=== PATIENT | female | born 2000 | race Hispanic/Latino ===

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

== ENCOUNTER 2018-03-21 18:22 | Emergency (ER) | payer OTHER ==
--- NOTE | 2018-03-21 20:46 | ULT ---
LEFT LOWER EXTREMITY VENOUS DOPPLER: 03/21/2018 PROVIDED CLINICAL HISTORY: Left lower leg pain. FINDINGS: Gamino-scale and color Doppler sonography with spectral analysis is performed of the left common femora l, femoral, popliteal, posterior tibial, greater saphenous, and profunda femoral veins and demonstrat e a normal sonographic appearance to each. IMPRESSION: No sonographic evidence for left lower extremity deep venous thrombosis. POS: [facility]
== END 2018-03-21 21:29 | disposition home or self-care (01) ==
LOC: ERS 18:22
DX: O99.89 Other specified diseases and conditions complicating pregnancy, childbirth and the puerperium (principal); R60.0 Localized edema; Z3A.40 40 weeks gestation of pregnancy

== ENCOUNTER 2018-04-12 19:08 | Day surgery (SDC) | payer OTHER ==
--- NOTE | 2018-04-12 19:36 | PDOC.LDHP ---
Labor and Delivery H&P Chief complaint: contractions HPI: 17 y/o G1 at 39w6d, patient of Dr. Bray, presents with contractions all day. She reports she has been sleeping all day but they have gotten stronger over the last couple of hours. Rates pain as a 9/10. Denies VB, LOF, PIH sx, or decreased FM. Has had increase in mucus discharge. ROS neg for HEENT, cv, pulm, gi, gu, neuro, psych, skin, musculoskeletal, or constitutional symptoms other than mentioned above. OB History Details: First , uncomplicated Past Medical History: Denies Current medications: pre- vitamins, iron Previous surgical history: none Allergies/Adverse Reactions: Allergies Allergy/AdvReac Type Severity Reaction Status Date / Time No Known Allergies Allergy Verified 10/26/13 09:59 Social history: none - Physical Exam Vital signs reviewed and normal: yes General: NAD, resting Lungs: nonlabored breathing Abdomen: gravid Extremeties: no edema FHT: category 1 (145, mod variability, + accels, no decels) [place] contractions every: 3-5 mins - Vaginal Exam cm dilated: 2 (Unchanged after 2 hours) Effacement: 75% Station: -3 - Assessment 17 y/o G1 at 39w6d with no e/o active labor. status reassuring with reactive NST. - Plan -: D/c home with precautions. Advised to keep all appointments.
== END 2018-04-12 22:00 | disposition home or self-care (01) ==
LOC: L&D/OP 19:08
PROVIDERS: ATTEND Obstetrics & Gynecology
DX: O47.1 False labor at or after 37 completed weeks of gestation (principal); Z3A.39 39 weeks gestation of pregnancy
CPT/HCPCS: 99283

== ENCOUNTER 2018-04-14 23:14 | Day surgery (SDC) | payer OTHER ==
[2018-04-14 23:45] VITALS: BP 123/80; TEMP 99.1; BMI 32.2
[2018-04-15 01:59] LABS: Amnisure Test No Membranes Rupture (No Rupture)
[2018-04-15 02:00] LABS: Amnisure Internal Control QC ACCEPTABLE (ACCEPTABLE)
--- NOTE | 2018-04-15 13:45 | SS ---
DATE OF EVALUATION: 04/15/2018. REGULAR PHYSICIAN: Joann Bray M.D. EVALUATING PHYSICIAN: Mikael Ramon M.D. CHIEF COMPLAINT: Contractions over the last 2-3 days. HISTORY OF PRESENT ILLNESS: Ms. Abdi is a 17-year-old , estimated date of confinement of 04/13/2018, who presents complaining of uterine contractions over the last several days that got s dominguezer lloyd. She was last seen by Dr. Bray in the clinic and was noted to be 3 cm. Upon initi al evaluation, she denied vaginal bleeding or ruptured membranes. Her care has been with Dr Heber Bray and has been uncomplicated. Her group B strep status is negative. PAST MEDICAL HISTORY: Unremarkable. CURRENT MEDICATIONS: vitamins. PAST SURGICAL HISTORY: None. ALLERGIES: No known allergies. SOCIAL HISTORY: Denies tobacco or alcohol use. FAMILY HISTORY: Noncontributory. PHYSICAL EXAMINATION: VITAL SIGNS: Stable and reassuring. GENERAL: She is afebrile. ABDOMEN: Soft, nontender and gravid. PELVIC: Vaginal exam is by examining labor nurse. heart tones are stable. Uterine cont ractions are seen every 3-5 minutes. The patient asked to walk and be reassessed. She was reexamined and made no cervical change. She di d think that she might have been leaking while she was walking, although when I reexamined her and sh e had no cervical change. An AmniSure was performed and this returned negative. ASSESSMENT: 1. A 40 and 2/7 week intrauterine . 2. Prodromal labor. 3. No evidence of rupture of membranes. PLAN: The patient will be allowed to go home and rest. She was given complete precautions and told to return when her contractions are stronger and more frequent. She is with her family and they all voiced understanding of the discharge instructions.
== END 2018-04-15 02:12 | disposition home or self-care (01) ==
LOC: L&D/OP 23:14
PROVIDERS: ATTEND Obstetrics & Gynecology
DX: O47.1 False labor at or after 37 completed weeks of gestation (principal); Z3A.40 40 weeks gestation of pregnancy; Z79.899 Other long term (current) drug therapy
CPT/HCPCS: 84112

== ENCOUNTER 2018-04-15 15:42 | Inpatient (IN) | payer OTHER ==
[2018-04-15 16:30] VITALS: BMI 32.2
--- NOTE | 2018-04-15 18:32 | PDOC.LDHP ---
Labor and Delivery H&P Chief complaint: contractions HPI: return post term with ctx Current gestational age (weeks): 40 Due date: 04/13/18 Dating criteria: first trimester ultrasound Grav: 1 Para: 0 Current complications: none Abnormal US findings: No Current medications: pre- vitamins Previous surgical history: none Allergies/Adverse Reactions: Allergies Allergy/AdvReac Type Severity Reaction Status Date / Time No Known Allergies Allergy Verified 04/15/18 16:23 Social history: none - Physical Exam Vital signs reviewed and normal: yes General: NAD, resting Heart: RRR Lungs: nonlabored breathing Abdomen: gravid Extremeties: no edema FHT: category 1 [place] contractions every: 3 - Vaginal Exam cm dilated: 4 Effacement: 100% Station: 0 - OB Labs Blood type: O RH: positive Antibody Screen: negative HIV: negative RPR: negative HEPSAg: negative 1 hour GCT: negative GBS: negative Urine drug screen: not done Rubella: immune - Assessment L&D Assessment: term patient in labor - Plan Plan: admit to L&D, anesthesia consult for pain management
[2018-04-15] MEDS ORDERED: Carboprost 250 MCG/ML AMP IM PRN (18:45)
[2018-04-15] MEDS ORDERED: Ibuprofen 800 MG TAB PO PRN (18:45)
[2018-04-15] MEDS ORDERED: NS w/ Oxytocin 10 units 500 ML IV SCH (18:45)
[2018-04-15] MEDS ORDERED: Lactated Ringer's 1,000 ML IV SCH (18:45)
[2018-04-15] MEDS ORDERED: Ondansetron HCl/PF 4 MG/2 ML Vial IVP PRN ×2 (18:45→20:54)
[2018-04-15] MEDS ORDERED: Diphenoxylate HCl/Atropine Tablet PO PRN (18:45)
[2018-04-15] MEDS ORDERED: Promethazine HCl 25 MG/ML VIAL IM PRN ×2 (18:45→20:54)
[2018-04-15] MEDS ORDERED: Lidocaine 1% (PF) 30 ML VIAL SC PRN (18:45)
[2018-04-15] MEDS ORDERED: NS / Oxytocin 40 units/1000ml 1,000 ML IV PRN (18:45)
[2018-04-15] MEDS ORDERED: HYDROcodone/Acetaminophen 5/325 mg Tablet PO PRN ×2 (18:45)
[2018-04-15] MEDS ORDERED: Butorphanol Tartrate 1 MG/ML VIAL SLOW IVP PRN (18:45)
[2018-04-15 19:05] LABS: Hemoglobin 11.7 g/dL (12.0-16.0); Mean Corpuscular HGB CONC 33.5 g/dL (32.0-36.0); Mean Corpuscular Hemoglobin 27.8 pg (25.0-35.0); Mean Corpuscular Volume 83.1 fl (77.0-87.0); Mean Platelet Volume 9.8 fL (7.4-10.4); Platelet Count 229 thou/uL (130-400); RBC Distribution Width 14.7 % (11.5-14.5); Red Blood Cell (RBC) Count 4.22 mill/uL (4.00-5.20); White Blood Cell (WBC) Count 12.5 thou/uL (4.8-10.8)
[2018-04-15 19:48] LABS: HBSAg Index 0.28 S/CO (0-0.99); Hep B Surf Ag Non-Reactive S/CO (NonReactive)
[2018-04-15 19:49] LABS: Syphilis Antibody Nonreactive (Nonreactive); Syphilis Antibody Index 0.02 S/CO (<1.00 Non-Reactive)
[2018-04-15] MEDS ORDERED: DISCONTINUE ALL PREVIOUS NARCOTICS FS SCH (20:00)
[2018-04-15] MEDS ORDERED: Bupivacaine 0.75% 13.4 ML, fentaNYL Citrate/PF 400 MCG in Sodium Chloride 0.9% 78.6 ML EPIDURAL SCH (20:00)
[2018-04-15] MEDS: Lactated Ringer's 1,000 ML IV SCH (20:20)
[2018-04-15] MEDS ORDERED: Lactated Ringer's 500 ML IV PRN (20:54)
[2018-04-15] MEDS ORDERED: ePHEDrine/0.9% NaCl/PF SYRINGE 50 mg/10 ml SLOW IVP PRN (20:54)
[2018-04-15] MEDS ORDERED: Naloxone HCl 0.4 mg/ml Vial IVP PRN ×2 (20:54)
[2018-04-15] MEDS ORDERED: Acetaminophen 325 MG TAB PO PRN (20:54)
[2018-04-15] MEDS ORDERED: Eucerin (Mineral Oil/Petrolatum,White) 30 gm Jar TOP PRN (20:54)
[2018-04-15] MEDS ORDERED: diphenhydrAMINE 50 MG/ML VIAL IVP PRN (20:54)
[2018-04-15] MEDS ORDERED: Fentanyl 4mcg/Marcaine 0.1% Cassette 100 ML EPIDURAL SCH (21:00)
[2018-04-15] MEDS ORDERED: Communication Order-Pharmacy FS SCH (21:00)
[2018-04-16] MEDS: Lactated Ringer's 1,000 ML IV SCH (04:11)
[2018-04-16] MEDS ORDERED: HYDROcodone/Acetaminophen 5/325 mg Tablet PO PRN (04:13)
[2018-04-16] MEDS ORDERED: Lanolin Ointment 7 GM TUBE TOP PRN (04:13)
[2018-04-16] MEDS ORDERED: Preparation H Ointment 28 GM TUBE PR PRN (04:13)
[2018-04-16] MEDS ORDERED: Ondansetron HCl/PF 4 MG/2 ML Vial IVP PRN (04:13)
[2018-04-16] MEDS ORDERED: Bisacodyl 10 MG SUPP PR PRN (04:13)
[2018-04-16] MEDS ORDERED: Promethazine HCl 25 MG/ML VIAL IM PRN (04:13)
[2018-04-16] MEDS ORDERED: Milk Of Magnesia 30 ML UDCUP PO PRN (04:13)
[2018-04-16] MEDS ORDERED: diphenhydrAMINE 25 MG CAP PO PRN (04:13)
[2018-04-16] MEDS ORDERED: Benzocaine/Menthol 20-0.5% 60 ML CAN TOP PRN (04:13)
[2018-04-16] MEDS ORDERED: NS / Oxytocin 40 units/1000ml 1,000 ML IV SCH (04:13)
[2018-04-16] MEDS ORDERED: Zolpidem Tartrate 5 MG TAB PO PRN (04:13)
[2018-04-16] MEDS: Ibuprofen 800 MG TAB PO SCH ×3 (05:39→21:17)
[2018-04-16] MEDS ORDERED: Bupivacaine/Epinephrine 0.25% 30 ML VIAL ONE (09:00)
[2018-04-16] MEDS ORDERED: Adacel (T-DAP) 0.5 ML VIAL IM ONE (09:00)
[2018-04-16] MEDS: Ferrous Sulfate 325 MG TAB PO SCH ×2 (09:03→17:02)
--- NOTE | 2018-04-16 09:13 | OP ---
DATE OF SERVICE: 04/16/2018 PREOPERATIVE DIAGNOSES: Complete +3 to +4 station straight occiput anterior with severe variable dec elerations after approximately 2 hours of pushing. POSTOPERATIVE DIAGNOSES: Complete +3 to +4 station straight occiput anterior with severe variable de celerations after approximately 2 hours of pushing and nuchal cord x1. PROCEDURE PERFORMED: Outlet Luikart Shipley forceps with second-degree midline laceration. SURGEON: Augustin Dunn M.D. ANESTHESIA: Epidural. ESTIMATED BLOOD LOSS: 500 mL. COMPLICATIONS: None. SPECIMENS REMOVED: Placenta, 3-vessel cord. OPERATIVE FINDINGS: 1. Straight OA, at +3 to +4 station with pushing delivered with gentle traction over one cont raction over second-degree midline laceration with loose nuchal cord. 2. Delivery at 0234, Apgars 9 and 9, weight pending. 3. Repair with 2-0 chromic. DRAINS: [place] to gravity. DESCRIPTION OF OPERATIVE PROCEDURE: After proper informed consent was obtained from the patient, mague dder had been drained and head location ascertained and noted to be essentially straight OA. L uikart Shipley were applied in the usual manner and with the next contraction over approximately 30-s econd period of time, the was delivered. Second-degree laceration developed at delivery. Inf ant's shoulders delivered and had a loose nuchal cord and was delivered through that nuchal cord, it was placed on the abdomen. Nursery nurses in attendance. Usual cord blood sample obtained. Placent a delivered spontaneously repair with a 2-0 chromic. The second-degree midline laceration in the usu al manner. Counts were correct and the patient entered into routine care.
[2018-04-16] MEDS: Docusate Calcium (SURFAK) 240 MG CAP PO SCH ×2 (09:20→21:17)
[2018-04-16] MEDS: Prenatal Vitamin 1 TAB PO SCH (09:20)
[2018-04-16] MEDS: HYDROcodone/Acetaminophen 5/325 mg Tablet PO PRN ×2 (09:32→15:35)
[2018-04-17] MEDS: Ibuprofen 800 MG TAB PO SCH ×3 (05:21→21:48)
--- NOTE | 2018-04-17 07:55 | PDOC.PP ---
Post Progress Note Post Day #: 1 PO intake tolerated: yes Flatus: yes Ambulation: yes Vital Signs (12 hours) Temp Pulse Resp BP 04/17/18 04:00 98.5 F 92 16 94/62 04/17/18 00:00 98.0 F 92 16 90/54 L 04/16/18 20:00 98.0 F 92 16 113/71 Weight Weight 182 lb - Physical Examination General: NAD Cardiovascular: no m/r/g, RRR Respiratory: clear to auscultation bilaterally, non-labored breathing Abdominal: + bowel sounds, lochia, no distention, appropriately TTP Result Diagrams: 04/15/18 18:48 Additional Labs: Post Labs Blood Type O POSITIVE 04/15/18 18:48 Hep Bs Antigen Non-Reactive S/CO (NonReactive) 04/15/18 18:48 - Assessment/Plan post day 1--primipara. Doing well.D/c in AM.
[2018-04-17] MEDS: Prenatal Vitamin 1 TAB PO SCH (08:51)
[2018-04-17] MEDS: Docusate Calcium (SURFAK) 240 MG CAP PO SCH ×2 (08:51→21:48)
[2018-04-17] MEDS: Ferrous Sulfate 325 MG TAB PO SCH ×2 (08:52→14:35)
[2018-04-18] MEDS: Ibuprofen 800 MG TAB PO SCH ×2 (04:55→12:32)
--- NOTE | 2018-04-18 07:52 | PDOC.PP ---
Post Progress Note Post Day #: 2 PO intake tolerated: yes Flatus: yes Ambulation: yes Vital Signs (12 hours) Temp Pulse Resp BP 04/18/18 00:10 98.7 F 71 18 118/70 04/17/18 20:50 99.0 F 82 18 111/64 Weight Weight 182 lb - Physical Examination General: NAD Cardiovascular: no m/r/g, RRR Respiratory: clear to auscultation bilaterally, non-labored breathing Abdominal: + bowel sounds, lochia, no distention, appropriately TTP Result Diagrams: 04/15/18 18:48 Additional Labs: Post Labs Blood Type O POSITIVE 04/15/18 18:48 Hep Bs Antigen Non-Reactive S/CO (NonReactive) 04/15/18 18:48 - Assessment/Plan post day 2 doing well. d/c home f/u 6 weeks
[2018-04-18 08:05] VITALS: BP 109/55; TEMP 98.3
[2018-04-18] MEDS: Ferrous Sulfate 325 MG TAB PO SCH (09:25)
[2018-04-18] MEDS: Prenatal Vitamin 1 TAB PO SCH (09:27)
[2018-04-18] MEDS: Docusate Calcium (SURFAK) 240 MG CAP PO SCH (09:27)
[2018-04-18] MEDS: HYDROcodone/Acetaminophen 5/325 mg Tablet PO PRN (12:32)
== END 2018-04-18 12:45 | disposition home or self-care (01) | DRG 775 ==
LOC: L&D/OP 15:42 → L&D 18:42 → 3SW 04-16 08:19
PROVIDERS: ADMIT Obstetrics & Gynecology; ATTEND Obstetrics & Gynecology
PROC: 10D07Z3 Extraction of Products of Conception, Low Forceps, Via Natural or Artificial Opening (ICD-10-PCS; principal; 2018-04-16)
PROC: 0KQM0ZZ Repair Perineum Muscle, Open Approach (ICD-10-PCS; 2018-04-16)
DX: O76 Abnormality in fetal heart rate and rhythm complicating labor and delivery (principal); O32.8XX0 Maternal care for other malpresentation of fetus, not applicable or unspecified; O70.1 Second degree perineal laceration during delivery; O69.81X0 Labor and delivery complicated by cord around neck, without compression, not applicable or unspecified; Z3A.40 40 weeks gestation of pregnancy; Z37.0 Single live birth
CPT/HCPCS: 36415; 51702; 84112; 85027; 86780; 86850; 86900; 86901; 87340; 99284; 99285; J2001; J2405; J3010; J7050

== ENCOUNTER 2018-11-03 13:51 | Emergency (ER) | payer OTHER ==
[2018-11-03 14:24] LABS: Bilirubin Negative (Negative); Blood, Urine Small (Negative); Clarity CLOUDY (Clear); Glucose, Urine (Dipstick) Negative (Negative); Leukocyte Small (Negative); Nitrite Negative (Negative); Protein, Urine (Dipstick) 100 mg/dL (Neg-Trace); Specific Gravity, Urine 1.026 (1.002-1.036); Urobilinogen 0.2 mg/dL (0.2-1.0)
[2018-11-03 14:25] LABS: Pregnancy Test - Urine (BHCG) Negative (Negative)
[2018-11-03 14:26] LABS: Bacteria/HPF 1+ HPF (None Seen); Hyaline Casts/LPF 4-6 HYALINE CAST LPF (0-3 Hyaline); Pathc Cast-AUWi Flag 1.45 (0-2.49); Pregu Control Background? CLEAR/WHITE (CLR/WHITE); Pregu Control Bar Appear? YES (CONTROL BAR); Specific Gravity 1.026 (1.002-1.036); WBC/HPF 21-50 HPF (0-3)
[2018-11-03 14:28] LABS: Yeast-AUWi Flag 97.8 (0-25.0)
[2018-11-03 14:38] LABS: Yeast-All Forms None Seen HPF (None Seen)
[2018-11-03 14:42] LABS: #Basophils 0.1 thou/uL (0.0-0.2); #Eosinphils 0.1 thou/uL (0.0-0.7); #Lymphocytes 2.1 thou/uL (1.20-3.40); #Monocytes 0.5 thou/uL (0.11-0.59); #Neutrophils 4.6 thou/uL (1.40-6.50); %Eosinophils 1.6 % (0.0-10.0); %Lymphocytes 28.4 % (28.0-48.0); %Monocytes 6.3 % (0.0-4.0); %Neutrophils 62.7 % (31.0-61.0); Hemoglobin 14.3 g/dL (12.0-16.0); Mean Corpuscular Hemoglobin 28.5 pg (25.0-35.0); Mean Corpuscular Volume 86.4 fL (78.0-98.0); Platelet Count 338 thou/uL (130-400); RBC Distribution Width 13.2 % (11.5-14.5); Red Blood Cell (RBC) Count 5.01 mill/uL (4.00-5.20); White Blood Cell (WBC) Count 7.4 thou/uL (4.8-10.8)
[2018-11-03 15:04] LABS: ALT (SGPT) 20 U/L (8-55); AST (SGOT) 20 U/L (5-30); Albumin 4.2 g/dL (3.5-5.0); Alkaline Phosphatase 149 U/L (40-150); Anion Gap 10 mmol/L (10-20); BUN (Urea Nitrogen) 7 mg/dL (8.4-21.0); Bilirubin, Total 0.3 mg/dL (0.2-1.2); Calc. Creatinine Clearance 0 mL/min (70-130); Calcium 8.9 mg/dL (7.8-10.44); Carbon Dioxide 25 mmol/L (22-29); Chloride 106 mmol/L (98-107); Estimated GFR-MDRD Greater than 90; Globulin 3.3 g/dL (2.4-3.5); Glucose 102 mg/dL (70-105); Protein, Total 7.5 g/dL (6.0-8.3); Sodium 137 mmol/L (136-145)
[2018-11-03 16:16] LABS: BHCG - Serum Negative (NEGATIVE); Pregs Control Background? CLEAR/WHITE (CLR/WHITE); Pregs Control Bar Appear? YES (CONTROL BAR)
[2018-11-03] MEDS ORDERED: diphenhydrAMINE 50 MG/ML VIAL ONE (16:18)
[2018-11-03] MEDS ORDERED: Meclizine HCl 25 MG TAB ONE (16:18)
[2018-11-03] MEDS ORDERED: Metoclopramide HCl 10 MG/2 ML VIAL ONE (16:18)
--- NOTE | 2018-11-03 16:44 | CT ---
HEAD CT WITHOUT CONTRAST: HISTORY: Dizziness. Nausea. Symptoms x2 weeks. COMPARISON: None. FINDINGS: No parenchymal hemorrhage. No extraaxial hematoma. No midline shift. The basilar cisterns are bedolla nt. Brain volume is age appropriate. Cortical [place] white matter differentiation is preserved. The ventricles and sulci are patent and symmetric. Adequate aeration of the sinuses and mastoid air cells. The calvarium is intact. IMPRESSION: No acute intracranial process. POS: [facility]
== END 2018-11-03 17:19 | disposition home or self-care (01) ==
LOC: ERS 13:51
DX: R42 Dizziness and giddiness (principal); R51 Headache; N39.0 Urinary tract infection, site not specified
CPT/HCPCS: 36415; 70450; 80053; 81003; 81015; 81025; 84703; 85025; 93005; 96365; 96375; J1200; J2765

== ENCOUNTER 2019-12-25 16:47 | Emergency (ER) | payer OTHER, SELFPAY ==
[2019-12-25] MEDS ORDERED: Acetaminophen 500 MG TAB ONE (17:54)
== END 2019-12-25 19:00 | disposition home or self-care (01) ==
LOC: ERS 16:47
DX: J11.1 Influenza due to unidentified influenza virus with other respiratory manifestations (principal)
CPT/HCPCS: 87804; 99283